=== PATIENT | male | born 1965 | race Caucasian/White ===

== ENCOUNTER 2022-10-31 07:09 | Day surgery (SDC) | payer BC ==
[~2022-10-31] VITALS: Ht 177.8 cm; Wt 86.4 kg
[~2022-10-31 07:09] MED LIST: ASPIRIN 81M81 MG/TA2 PO; BIOTIN1 MG PO; HUMALOG100 U/ML SC; LANTUS100 U/ML SC; MULTI-VITAMIN1 CTB PO; REGLAN 5MG T5 MG/TAB PO; VITAMIN C500 MG PO; ZOCOR 40MG40 MG PO
[2022-10-31 09:05] VITALS: BP 115/77; PULSE 68; TEMP 97.4
--- NOTE | 2022-10-31 09:05 | NUR ---
0905 PATIENT RETURNS TO ROOM 1 VIA CART. PATIENT IS DROWSY BUT ALERTS TO VERBAL STIMULI. PATIENT AMBULATES BACK TO RECLINER WITH THE ASSISTANCE OF 2 NURSES. RESPIRATIONS EVEN AND UNLABORED. VITAL SIGNS OBTAINED. PATIENT REQUESTED A SPRITE. NO DIFFICULTIES SWALLOWING. 09 DOCTOR IN TO SPEAK WITH PATIENT. 929 DISCHARGE INSTRUCTIONS REVIEWED WITH PATIENT. PATIENT VERBALIZED UNDERSTANDING. 0935 DISCONTINUED IV FROM RIGHT FOREARM WITH NO DIFFICULTIES. 0950 PATIENT DISCHARGES FROM UNIT VIA WHEELCHAIR IN STABLE CONDITION. BROTHER IS DRIVIING HIM HOME.
[2022-10-31 09:20] VITALS: BP 123/80; PULSE 65
[2022-10-31 09:28] VITALS: BP 135/85; PULSE 92; TEMP 97
[2022-10-31 09:35] VITALS: BP 122/79; PULSE 65
[2022-10-31] MEDS ORDERED: CARDIZEM 90MG T90 MG PO (09:35)
[2022-10-31] MEDS ORDERED: PRILOSEC 20MG20 MG PO (09:35)
[2022-10-31] MEDS ORDERED: INSULIN N (N100 U/ML (09:38)
[2022-10-31] MEDS ORDERED: REGLAN 5MG T5 MG/TAB PO (09:39)
[2022-10-31] MEDS ORDERED: ZOCOR 40MG40 MG PO (09:39)
[2022-10-31] MEDS ORDERED: HUMALOG100 U/ML (09:41)
== END 2022-10-31 09:50 | disposition home or self-care (01) ==
LOC: SDCO 07:09
DX: Z12.11 Encounter for screening for malignant neoplasm of colon (principal); D12.0 Benign neoplasm of cecum; D12.4 Benign neoplasm of descending colon; D12.5 Benign neoplasm of sigmoid colon; E11.9 Type 2 diabetes mellitus without complications
CPT/HCPCS: J2704; J7120